=== PATIENT | male | born 1935 | race Caucasian/White ===

== ENCOUNTER 2016-10-04 22:27 | Emergency (ER) | payer OTHER, MEDICAID ==
[~2016-10-04] VITALS: Ht 172.7 cm; Wt 75.0 kg
[~2016-10-04 22:27] MED LIST: CELE200C PO; CITA20TA4 PO; LEVE250 PO; LORA0.5T PO; LORTA5 PO; METF500 PO; NEUR400C PO; PHEN100 PO; TAMS0.4C67 PO; TYLETAB34 PO; ZOCO40TA PO
[2016-10-04 22:29] VITALS: BP 172/75; PULSE 65; RESP 20; TEMP 98.8; O2SAT 95
[2016-10-04] MEDS ORDERED: GABA400C5 PO (22:49)
[2016-10-04] MEDS ORDERED: CELE1CAP8 PO (22:49)
[2016-10-04] MEDS ORDERED: SIMV40TA PO (22:49)
[2016-10-04] MEDS ORDERED: METF500T PO (22:49)
[2016-10-04] MEDS ORDERED: LEVE10003 PO (22:49)
[2016-10-04] MEDS ORDERED: MILKSUS PO (22:49)
[2016-10-04] MEDS ORDERED: SODI1ENE RECTAL (22:49)
[2016-10-04] MEDS ORDERED: DULC10SU3 RECTAL (22:49)
[2016-10-04] MEDS ORDERED: CITRSOL3 PO (22:49)
--- NOTE | 2016-10-04 23:14 | PD ---
HPI Chief Complaint: Fall Time Seen by Provider: 23:05 Travel History International Travel<30 days: No Contact w/Intl Traveler<30days: No Traveled to known affect area: No History of Present Illness HPI 80-year-old male presents emergency Department by nonemergent transport from a nursing facility for evaluation of a fall. The patient states that he lost his balance getting up out of bed to go to the bathroom. He states that he fell forward striking his left face and injuring his left shoulder and left middle finger. He denies syncope. No neck and back pain. No nausea vomiting. No headache. No chest pain, shortness of breath. PFSH Past Medical History Narrative Medical Seizures, gait disturbance, Diabetes, arthritis, nonunion left shoulder fracture Arthritis: Yes Cancer: No Cardiovascular Problems: No Diabetes: Yes Genitourinary: No Implanted Vascular Access Dvce: No Psychiatric: No Respiratory: No Seizures: Yes Tetanus Vaccination: < 5 Years Past Surgical History Other Surgery: Yes (knee surgery ) Social History Alcohol Use: No Tobacco Use: No Substance Use: No Allergies-Medications (Allergen,Severity, Reaction): Coded Allergies: No Known Allergies (Unverified , 10/04/16) Reported Meds & Prescriptions Reported Meds & Active Scripts Active Reported Simvastatin 40 Mg Tab 40 Mg PO HS Milk of Magnesia Liq (Magnesium Hydroxide) 400 Mg/5 Ml Susp 30 Ml PO ONCE PRN Metformin (Metformin HCl) 500 Mg Tab 500 Mg PO BIDPC With meals Levetiracetam 1,000 Mg Tab 1,000 Mg PO BID Gabapentin 400 Mg Cap 400 Cap PO TID Enema (Sodium Phosphates) 1 Crystal Crystal 1 Bottle RECTAL DAILY PRN Dulcolax Supp (Bisacodyl) 10 Mg Supp 10 Mg RECTAL DAILY PRN Citroma Liq (Magnesium Citrate) 300 Ml Liq 296 Ml PO DAILY PRN Celecoxib 200 Mg Cap 200 Mg PO DAILY Review of Systems Except as stated in HPI: all other systems reviewed are Neg Physical Exam Narrative GENERAL: Well-developed, well-nourished in no apparent distress. Nontoxic appearing. HEAD: Patient has ecchymosis and swelling to the left periorbital area along with a 2 cm laceration. No active bleeding. Neurovascular intact. EYES: Pupils equal round and reactive. Extraocular motions intact. No scleral icterus. No injection or drainage. ENT: Nose clear. Throat without erythema, tonsillar hypertrophy or exudate. Uvula midline. Airway patent. NECK: Trachea midline. Supple, nontender, moves head freely. No central bony tenderness or spasm. CARDIOVASCULAR: Regular rate and rhythm without murmurs, gallops, or rubs. RESPIRATORY: Clear to auscultation. Breath sounds equal bilaterally. No wheezes , rales, or rhonchi. GASTROINTESTINAL: Abdomen soft, non-tender, nondistended. No hepato-splenomegaly , or palpable masses. No guarding. EXTREMITIES: No clubbing, cyanosis, or edema. Examination of the right upper show me is unremarkable for acute injury. Examination of left upper extremity reveals significant decreased range of motion in the left shoulder. 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 No pain in the elbow, wrist. He does have pain and some mild swelling in the middle finger PIP joint. No instability. Lower extremities are unremarkable for acute bony tenderness or deformity. BACK: Nontender without deformity. No flank tenderness. NEUROLOGICAL: Awake, alert and oriented x 3 .Cranial nerves grossly intact. Motor and sensory grossly within normal limits. Normal speech. 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 Differential Diagnosis MDM: High Differential diagnoses: Fracture, sprain, strain, dislocation, contusion, neurovascular injury Narrative Course Patient's x-ray of the shoulder reveals no acute fracture. He has a nonunion of a fracture of the proximal humerus. The middle finger is unremarkable. CT scanning of the brain and neck are not indicated at this time. The patient is alert and oriented. His facial lacerations closed with Dermabond. Procedures Procedure Narrative LACERATION LOCATION: Left temporal region LENGTH: 2 cm NUMBER OF STITCHES/JEWELL: Not applicable REPAIR: The area of the laceration was prepped with Betadine and sterilely draped. The wound was copiously irrigated and explored without evidence of foreign body, tendon injury or neurovascular injury. The wound was closed using Dermabond simple single. This was a simple single layer repair. The patient was advised to keep the dressing clean and dry. Patient tolerated the procedure well. 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 Ice pack tonight. Tylenol for pain. Dermabond instructions. Sunscreen and mederma for 6 months. Follow-up with your orthopedist within 1 week. Follow-up with a medical doctor at the facility within 1 week. Return to the ER for any problems. Med/Other Pt SpecificInfo: Wound Care, Other (head precautions) Disposition: 01 DISCHARGE HOME Condition: Stable Riaz Bauman Oct 04, 2016 23:14
--- NOTE | 2016-10-04 23:31 | RADRPT ---
EXAM DATE/TIME: 10/04/2016 22:47 [facility] COMPARISON: SHOULDER LEFT LTD (2VWS), June 30, 2016, 12:58. INDICATIONS : Patient states he fell four times today. MEDICAL HISTORY : Hypertension. Diabetes mellitus type II. Epilepsy. SURGICAL HISTORY : None. ENCOUNTER: Initial ACUITY: 1 day PAIN SCORE: 6/10 LOCATION: Left Shoulder. FINDINGS: There is fracturing at the surgical neck of the proximal left humerus. This finding was present on e prior shoulder series from 06/30/2016. New fracturing is not seen. The glenohumeral joint is aligne d. There are several small fragments seen around the fracture site. The acromioclavicular joint is no rmally aligned. CONCLUSION: Persistent fracture deformity of the proximal left humerus at the surgical neck. Luis Alberto Santizo MD on October 04, 2016 at 23:28 Board Certified Radiologist. This report was verified electronically.
--- NOTE | 2016-10-04 23:35 | RADRPT ---
EXAM DATE/TIME: 10/04/2016 22:53 [facility] COMPARISON: No previous studies available for comparison. INDICATIONS : Patient states he fell four times today. MEDICAL HISTORY : Hypertension. Diabetes mellitus type II. Epilepsy. SURGICAL HISTORY : Left wrist ENCOUNTER: Initial ACUITY: 1 day PAIN SCORE: 5/10 LOCATION: Left Third digit interphalangeal joint. FINDINGS: Examination of the third digit of the left hand demonstrates no evidence of fracture or dislocation. No radiopaque foreign bodies are seen at the third digit. The soft tissues are intact. The bones ar e osteopenic. There is a surgical plate at the distal radius. CONCLUSION: No acute disease. Luis Alberto Santizo MD on October 04, 2016 at 23:33 Board Certified Radiologist. This report was verified electronically.
== END 2016-10-05 01:04 | disposition home or self-care (01) ==
LOC: NEPB 22:27
DX: S42.202A Unspecified fracture of upper end of left humerus, initial encounter for closed fracture (principal); S01.81XA Laceration without foreign body of other part of head, initial encounter; S40.012A Contusion of left shoulder, initial encounter; S63.633A Sprain of interphalangeal joint of left middle finger, initial encounter; W06.XXXA Fall from bed, initial encounter; Y92.129 Unspecified place in nursing home as the place of occurrence of the external cause
CPT/HCPCS: 12011; 73030; 73140